=== PATIENT | male | born 1990 | race African-American/Black ===

== ENCOUNTER → 2017-03-19 | Outpatient (CLI) | payer MEDICARE, OTHER ==
[2014-05-03 15:04] VITALS: BP 122/78
[~2017-03-19] MED LIST: ARIP15TA3 PO; DIVA500T2 PO; LEXAPRO20 MG PO; TRAZ100T12 PO
--- NOTE | 2017-03-19 11:32 | KCIC ---
KNEE LEFT 3V, ANKLE LEFT 3V Indication: .Pain in left ankle. Left knee pain. Comparison: No comparison is available. FINDINGS: Left ankle No evidence of acute fracture. No bone destruction. Joint spaces and alignment are intact. Left knee No acute fracture. No bone destruction. Joint spaces and alignment are intact. IMPRESSION: No acute fracture or dislocation of the left ankle and left knee. If clinical symptoms persist, consider follow-up radiograph or MRI. Electronically signed by: Harry Bowden MD (03/19/2017 11:29 AM) [facility]
== END | disposition home or self-care (01) ==
LOC: KCIC 10:33
PROVIDERS: ATTEND Family Medicine
DX: M25.572 Pain in left ankle and joints of left foot (principal); M25.562 Pain in left knee; M79.672 Pain in left foot
CPT/HCPCS: 73562; 73610

== ENCOUNTER 2018-03-11 09:47 | Emergency (ER) | payer MEDICARE, OTHER ==
[~2018-03-11] VITALS: Ht 182.9 cm; Wt 81.6 kg
[~2018-03-11 09:47] MED LIST changes: +TRAZ-86 PO; -TRAZ100T12 PO
[2018-03-11] MEDS ORDERED: CYCLOBENZAPRINE 10 MG TABLET. PO ONE (11:15)
[2018-03-11] MEDS ORDERED: KETOROLAC 60 MG/2 ML INJ. IM ONE (11:15)
[2018-03-11 11:20] VITALS: BP 128/72
--- NOTE | 2018-03-11 11:48 | RAD ---
Lumbar spine, 3 views, 03/11/2018: HISTORY: Lower back injury The vertebral tibial heights and intervertebral disc spaces are well-maintained. No fracture or dislocation is identified. The paraspinous soft tissues are unremarkable. IMPRESSION: No significant abnormality is detected. Electronically signed by: Willard Acevedo MD (03/11/2018 11:45 AM) [facility]
[2018-03-11] MEDS ORDERED: CYCL10TA2 PO (12:12)
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
== END 2018-03-11 12:20 | disposition home or self-care (01) ==
LOC: ER 09:47
DX: S39.012A Strain of muscle, fascia and tendon of lower back, initial encounter (principal); G89.29 Other chronic pain; F31.9 Bipolar disorder, unspecified; F90.9 Attention-deficit hyperactivity disorder, unspecified type; W22.8XXA Striking against or struck by other objects, initial encounter; Y93.89 Activity, other specified; Y92.89 Other specified places as the place of occurrence of the external cause; Y99.8 Other external cause status
CPT/HCPCS: 72100; 99284

== ENCOUNTER 2018-07-31 17:23 | Emergency (ER) | payer MEDICARE, OTHER ==
[~2018-07-31] VITALS: Ht 180.3 cm; Wt 81.6 kg
[~2018-07-31 17:23] MED LIST changes: +CYCL10TA2 PO
[2018-07-31] MEDS ORDERED: ONDANSETRON PF 4 MG/2 ML VIAL. IV ONE (17:45)
[2018-07-31] MEDS ORDERED: IV NORMAL SALINE 1000ML BAG 1,000 ML IV ONE (17:45)
[2018-07-31 18:10] LABS: BASO % 0 % (0-3); EOS % 0 % (0-3); HEMATOCRIT 49.2 % (39.0-53.0); HEMOGLOBIN 16.2 g/dL (13.0-17.5); LYMPH # 0.2 x10^3/uL (1.0-4.8); LYMPH % 2 % (24-48); MEAN CORPUSCULAR HEMOGLOBIN 26 pg (25-35); MEAN CORPUSCULAR HGB CONC 33 g/dL (31-37); MEAN CORPUSCULAR VOLUME 78 fL (79-100); MONO # 0.6 x10^3/uL (0.0-1.1); MONO % 8 % (0-9); NEUT # 6.3 x10^3uL (1.8-7.7); NEUT % 89 % (31-73); PLATELET COUNT 252 x10^3/uL (140-400); RED BLOOD COUNT 6.27 x10^6/uL (4.30-5.70); RED CELL DISTRIBUTION WIDTH 13.9 % (11.5-14.5); WHITE BLOOD COUNT 7.1 x10^3/uL (4.0-11.0)
[2018-07-31 18:12] LABS: BILIRUBIN,URINE NEGATIVE (NEG); CLARITY,URINE TURBID; COLOR,URINE AMBER; NITRITE,URINE NEGATIVE (NEG); PH,URINE 5.5; PROTEIN,URINE 30 mg/dL (NEG-TRACE); UROBILINOGEN,URINE 0.2 mg/dL (0.2 mg/dL)
[2018-07-31 18:20] LABS: CALCIUM 9.6 mg/dL (8.5-10.1); CREATININE 1.2 mg/dL (0.7-1.3); GFR 87.2; POTASSIUM 4.2 mmol/L (3.5-5.1)
[2018-07-31 18:22] LABS: AMORPHOUS SEDIMENT,UR PRESENT /HPF; BACTERIA,URINE 0 /HPF (0-FEW); RBC,URINE 0 /HPF (0-2); SQUAMOUS EPITHELIAL CELL,UR OCC /LPF; WBC,URINE 0 /HPF (0-4)
[2018-07-31 18:49] LABS: % BANDS 3 % (0-9); % LYMPHS 3 % (24-48); % MONOS 2 % (0-10); % SEGS 92 % (35-66); PLT ESTIMATE ADEQUATE (ADEQUATE)
[2018-07-31] MEDS ORDERED: ONDA4TAB12 PO (19:19)
--- NOTE | 2018-07-31 19:19 | PHYS DOC ---
Past Medical History Past Medical History: Bipolar, Depression, Other Additional Past Medical Histor: ADD, ADHD Past Surgical History: No Surgical History Alcohol Use: Rarely Drug Use: None Adult General Chief Complaint Chief Complaint: NAUSEA/VOMITING/DIARRHA HPI HPI Patient is a 27 year old AA male who presents to the ER, via EMS, with complaints of nausea, vomiting, and diarrhea today. Pt states he has had at least 12 episodes of diarrhea and 12 or more episodes of vomiting today. He denies any fever, cough, sore throat, body aches, chest pain, palpitations, or dizziness. Pt states his upper abdomen is tender and reports having abdominal cramping today. Pt states that the sx began at 0600. EMS states that patient had a temperature of 100.1. Patient currently rates his pain an 8/10 on the pain scale, nothing makes the pain better but vomiting increases the pain. Review of Systems Review of Systems Constitutional: reports hot flashes and chills HENT: Denies nasal congestion or sore throat [] Respiratory: Denies cough or shortness of breath [] Cardiovascular: No additional information not addressed in HPI [] GI: See HPI, denies blood in stools or emesis : Denies dysuria or hematuria [] Musculoskeletal: Denies back pain or joint pain [] Integument: Denies rash or skin lesions [] Neurologic: Denies headache, focal weakness or sensory changes [] Current Medications Current Medications Current Medications Medications (Trade) Dose Ordered Sig/Neha Start Time Stop Time Status Last Admin Dose Admin Ondansetron HCl (Zofran) 4 mg 1X ONCE 07/31/18 17:45 07/31/18 17:46 DC 07/31/18 18:01 4 MG Sodium Chloride 1,000 ml @ 1,000 mls/hr 1X ONCE 07/31/18 17:45 07/31/18 18:44 DC 07/31/18 18:01 1,000 MLS/HR Allergies Allergies Allergies Coded Allergies Type Severity Reaction Last Updated Verified No Known Drug Allergies 06/13/13 No Physical Exam Physical Exam Constitutional: Well developed, well nourished, no acute distress, non-toxic appearance. [] HENT: Normocephalic, atraumatic, bilateral external ears normal, oropharynx moist, no oral exudates, nose normal. [] Eyes: conjunctiva normal, no discharge. [] Neck: Normal range of motion, no stridor. [] Cardiovascular:Heart rate regular rhythm, no murmur [] Lungs & Thorax: Bilateral breath sounds clear to auscultation [] Abdomen: Bowel sounds normal, soft, epigastric tenderness to palpation, no masses, no pulsatile masses. [] Skin: Warm, dry, no erythema, no rash. [] Extremities: No cyanosis, ROM intact, no edema. [] Neurologic: Alert and oriented X 3, normal motor function, normal sensory function, no focal deficits noted. [] Psychologic: Affect normal, judgement normal, mood normal. [] Current Patient Data Vital Signs Vital Signs Date Time Temp Pulse Resp B/P (MAP) Pulse Ox O2 Delivery O2 Flow Rate FiO2 07/31/18 19:29 83 18 115/71 (86) 97 Room Air 07/31/18 17:25 99.5 99.5 Lab Values Laboratory Tests Test 07/31/18 17:30 07/31/18 17:50 Urine Collection Type Void Urine Color Mary Urine Clarity Turbid Urine pH 5.5 Urine Specific [place] >=1.030 Urine Protein 30 mg/dL (NEG-TRACE) Urine Glucose (UA) Negative mg/dL (NEG) Urine Ketones (Stick) 15 mg/dL (NEG) Urine Blood Trace (NEG) Urine Nitrite Negative (NEG) Urine Bilirubin Negative (NEG) Urine Urobilinogen Dipstick 0.2 mg/dL (0.2 mg/dL) Urine Leukocyte Esterase Negative (NEG) Urine RBC 0 /HPF (0-2) Urine WBC 0 /HPF (0-4) Urine Squamous Epithelial Cells Occ /LPF Urine Amorphous Sediment Present /HPF Urine Bacteria 0 /HPF (0-FEW) Urine Mucus Marked /LPF White Blood Count 7.1 x10^3/uL (4.0-11.0) Red Blood Count 6.27 x10^6/uL (4.30-5.70) H Hemoglobin 16.2 g/dL (13.0-17.5) Hematocrit 49.2 % (39.0-53.0) Mean Corpuscular Volume 78 fL (79-100) L Mean Corpuscular Hemoglobin 26 pg (25-35) Mean Corpuscular Hemoglobin Concent 33 g/dL (31-37) Red Cell Distribution Width 13.9 % (11.5-14.5) Platelet Count 252 x10^3/uL (140-400) Neutrophils (%) (Auto) 89 % (31-73) H Lymphocytes (%) (Auto) 2 % (24-48) L Monocytes (%) (Auto) 8 % (0-9) Eosinophils (%) (Auto) 0 % (0-3) Basophils (%) (Auto) 0 % (0-3) Neutrophils # (Auto) 6.3 x10^3uL (1.8-7.7) Lymphocytes # (Auto) 0.2 x10^3/uL (1.0-4.8) L Monocytes # (Auto) 0.6 x10^3/uL (0.0-1.1) Eosinophils # (Auto) 0.0 x10^3/uL (0.0-0.7) Basophils # (Auto) 0.0 x10^3/uL (0.0-0.2) Segmented Neutrophils % 92 % (35-66) H Band Neutrophils % 3 % (0-9) Lymphocytes % 3 % (24-48) L Monocytes % 2 % (0-10) Platelet Estimate Adequate (ADEQUATE) Giant Platelets Occ Sodium Level 141 mmol/L (136-145) Potassium Level 4.2 mmol/L (3.5-5.1) Chloride Level 104 mmol/L (98-107) Carbon Dioxide Level 27 mmol/L (21-32) Anion Gap 10 (6-14) Blood Urea Nitrogen 20 mg/dL (8-26) Creatinine 1.2 mg/dL (0.7-1.3) Estimated GFR (Cockcroft-Gault) 87.2 Glucose Level 107 mg/dL (70-99) H Calcium Level 9.6 mg/dL (8.5-10.1) Laboratory Tests 07/31/18 17:50 Laboratory Tests 07/31/18 17:50 EKG EKG [] Radiology/Procedures Radiology/Procedures [] Course & Med Decision Making Course & Med Decision Making Pertinent Labs and Imaging studies reviewed. (See chart for details) Dx: nausea, vomiting, diarrhea Pt was given 1L NS, and 4 mg of zofran in the ER. CBC was unremarkable, UA was unremarkable, glucose 107 otherwise BMP normal; pt was asymptomatic with orthostatic BPs Pt reports feeling better after medications. Prescription written for zofran. Clear fluids x24 hours, then advance to bland foods. Follow up with PCP if symptoms persist, return to ER if symptoms worsen. Patient verbalized an understanding of home care, medications, follow-up, and return to ED instructions and was in agreement with the plan of care. [] Dragon Disclaimer Dragon Disclaimer This electronic medical record was generated, in whole or in part, using a voice recognition dictation system. Departure Departure Impression: Primary Impression: Nausea & vomiting Additional Impression: Diarrhea Disposition: 01 HOME, SELF-CARE Condition: STABLE Referrals: KAIN ALEX MD (PCP) Patient Instructions: Diarrhea, [id number], Diet for Diarrhea, Adult, Nausea and Vomiting, [id number] Additional Instructions: Fill prescriptions and use them as directed. Recommend clear fluids for the next 24 hours. Then you may advance to bland foods such as bananas, rice, applesauce, and dry toast. Follow-up with your primary care doctor in the next 1 -2 days. Return to the emergency room if your symptoms worsen. Scripts Ondansetron (ONDANSETRON ODT) 4 Mg Tab.rapdis 1 TAB PO PRN Q6-8HRS PRN for NAUSEA/VOMITING, #16 TAB 0 Refills Prov: MACK BENNETT TOOL CRIB LEAD 07/31/18 Problem Qualifiers Primary Impression: Nausea & vomiting Vomiting type: unspecified Vomiting Intractability: non-intractable Qualified Codes: R11.2 - Nausea with vomiting, unspecified Additional Impression: Diarrhea Diarrhea type: unspecified type Qualified Codes: R19.7 - Diarrhea, unspecified MACK BENNETT TOOL CRIB LEAD Jul 31, 2018 19:19
[2018-07-31 19:29] VITALS: BP 115/71
== END 2018-07-31 19:30 | disposition home or self-care (01) ==
LOC: ER 17:23
DX: R11.2 Nausea with vomiting, unspecified (principal); R19.7 Diarrhea, unspecified; R10.13 Epigastric pain; F31.9 Bipolar disorder, unspecified
CPT/HCPCS: 36415; 80048; 81001; 85007; 85025; 96361; 96374; 99283; J2405; J7030

== ENCOUNTER → 2020-11-29 | Outpatient (CLI) | payer MEDICARE, MEDICAID ==
[~2020-11-29] MED LIST changes: +ONDA4TAB12 PO; +TRAZ-123 PO; -TRAZ-86 PO
--- NOTE | 2020-11-29 12:54 | KCIC ---
EXAM: Bilateral knees, 3 views. HISTORY: Pain. COMPARISON: None. FINDINGS: 3 views of both knees are obtained. There is no fracture, dislocation or subluxation. There is no joint effusion. IMPRESSION: No acute osseous finding. Electronically signed by: Amalia Mclaughlin MD (11/29/2020 12:52 PM) [id number]
--- NOTE | 2020-11-29 13:36 | KCIC ---
XR FOOT_RIGHT 3 VIEWS, XR EXAM OF ANKLE_RIGHT 3VIEWS DATE: 11/29/2020 11:31 AM INDICATION: RT FOOT AND ANKLE PAIN, NO KNOWN INJURY COMPARISON: None. FINDINGS: Bones: There is no evidence of acute fracture or dislocation. Joints: The ankle mortise is congruent. No widening of the distal tibiofibular syndesmosis. Pes planu s. Miscellaneous: None. IMPRESSION: 1. No acute osseous abnormality of the ankle or foot. 2. Pes planus. Electronically signed by: Estuardo Newman MD (11/29/2020 1:33 PM) [id number]
== END ==
LOC: KCIC 11:26
PROVIDERS: ATTEND Nurse Practitioner Gerontology
DX: M25.561 Pain in right knee (principal); M25.562 Pain in left knee; M25.571 Pain in right ankle and joints of right foot
CPT/HCPCS: 73610; 73630; 73562-50